=== PATIENT | female | born 1970 | race Two or more races ===

== ENCOUNTER 2018-05-17 11:56 | Emergency (ER) | payer SELFPAY ==
[~2018-05-17] VITALS: Ht 147.3 cm; Wt 59.0 kg
[2018-05-17 12:45] VITALS: BP 125/53
[2018-05-17] MEDS ORDERED: AMOX500C PO (13:38)
[2018-05-17] MEDS ORDERED: IBUP-1007 PO (13:38)
--- NOTE | 2018-05-17 13:39 | PHYS DOC ---
Past Medical History Past Medical History: No Pertinent History Past Surgical History: Alcohol Use: None Drug Use: None Adult General Chief Complaint Chief Complaint: OTHER COMPLAINTS HPI HPI Patient is a 48 year old female who presents with pain to the left ear and behind the left ear last 3 days. Patient denies recent illness or fever. Review of Systems Review of Systems Constitutional: Denies fever or chills [] Eyes: Denies change in visual acuity, redness, or eye pain [] HENT: Denies nasal congestion or sore throat. Left ear pain [] Respiratory: Denies cough or shortness of breath [] Cardiovascular: No additional information not addressed in HPI [] GI: Denies abdominal pain, nausea, vomiting, bloody stools or diarrhea [] : Denies dysuria or hematuria [] Musculoskeletal: Denies back pain or joint pain [] Integument: Denies rash or skin lesions [] Neurologic: Denies headache, focal weakness or sensory changes [] Endocrine: Denies polyuria or polydipsia [] All other systems were reviewed and found to be within normal limits, except as documented in this note. Current Medications Current Medications Current Medications Medications (Trade) Dose Ordered Sig/Kia Start Time Stop Time Status Last Admin Dose Admin Dexamethasone (Decadron) 8 mg 1X ONCE 05/17/18 13:45 05/17/18 13:46 DC 05/17/18 14:00 8 MG Ibuprofen (Motrin) 600 mg 1X ONCE 05/17/18 13:45 05/17/18 13:46 DC 05/17/18 14:00 600 MG Allergies Allergies Allergies Coded Allergies Type Severity Reaction Last Updated Verified No Known Drug Allergies 05/17/18 No Physical Exam Physical Exam Constitutional: Well developed, well nourished, no acute distress, non-toxic appearance. [] HENT: Normocephalic, atraumatic, bilateral external ears normal, oropharynx moist, no oral exudates, nose normal. Left ear tympanic is reddened and tender to examination. Behind left ear is tender to palpation. [] Eyes: PERRLA, EOMI, conjunctiva normal, no discharge. [] Neck: Normal range of motion, no tenderness, supple, no stridor. [] Cardiovascular:Heart rate regular rhythm, no murmur [] Lungs & Thorax: Bilateral breath sounds clear to auscultation [] Abdomen: Bowel sounds normal, soft, no tenderness, no masses, no pulsatile masses. [] Skin: Warm, dry, no erythema, no rash. [] Back: No tenderness, no CVA tenderness. [] Extremities: No tenderness, no cyanosis, no clubbing, ROM intact, no edema. [] Neurologic: Alert and oriented X 3, normal motor function, normal sensory function, no focal deficits noted. [] Psychologic: Affect normal, judgement normal, mood normal. [] Current Patient Data Vital Signs Vital Signs Date Time Temp Pulse Resp B/P (MAP) Pulse Ox O2 Delivery O2 Flow Rate FiO2 05/17/18 12:45 97.5 52 20 125/53 (77) 100 Room Air 97.5 EKG EKG [] Radiology/Procedures Radiology/Procedures [] Course & Med Decision Making Course & Med Decision Making Patient is a 48 year old female who presents with pain to the left ear and behind the left ear last 3 days. Patient denies recent illness or fever. Alert and oriented. Skin pink warm and dry. Mucous members are moist. Patient denies any cough, shortness of air, chest pain, abdominal pain, nausea, vomiting, fever , diarrhea. Left tympanic membrane is reddened and tender when examining. Vital signs within normal limits. Afebrile. Lungs are clear to auscultation in all lobes. Heart rate regular without murmur. Patient is treated with dexamethasone, pain medication and is sent home with an antibiotic. Patient to follow-up with her primary care doctor if not getting better. Dragon Disclaimer Dragon Disclaimer This electronic medical record was generated, in whole or in part, using a voice recognition dictation system. Departure Departure Impression: Primary Impression: Otitis media Disposition: 01 HOME, SELF-CARE Condition: STABLE Referrals: NO PCP (PCP) Patient Instructions: General Headache Without Cause, Otitis Media, Adult Additional Instructions: Follow up with primary care physician. Take medications as prescribed. Scripts Ibuprofen (IBUPROFEN) 600 Mg Tablet 600 MG PO PRN Q6HRS PRN for INFLAMMATION, #10 TAB Prov: PERCY JOHNSON [employer] 05/17/18 Amoxicillin (AMOXICILLIN) 500 Mg Capsule 1 CAP PO BID for 10 Days, #20 CAP Prov: PERCY JOHNSON [employer] 05/17/18 Problem Qualifiers Primary Impression: Otitis media Otitis media type: unspecified Laterality: left Qualified Codes: H66.92 - Otitis media, unspecified, left ear PERCY J[employer]NSON [employer] May 17, 2018 13:39
[2018-05-17] MEDS ORDERED: IBUPROFEN 600 MG TABLET. PO ONE (13:45)
[2018-05-17] MEDS ORDERED: DEXAMETHASONE 4 MG TABLET PO ONE (13:45)
== END 2018-05-17 14:03 | disposition home or self-care (01) ==
LOC: ER 11:56
DX: H66.92 Otitis media, unspecified, left ear (principal); Z98.890 Other specified postprocedural states
CPT/HCPCS: 99283; J8540

== ENCOUNTER 2019-09-28 09:37 | Emergency (ER) | payer SELFPAY ==
[~2019-09-28] VITALS: Ht 147.3 cm; Wt 63.0 kg
[~2019-09-28 09:37] MED LIST: AMOX500C PO; IBUP-1007 PO
[2019-09-28 09:50] VITALS: BP 122/59
--- NOTE | 2019-09-28 10:30 | RAD ---
CHEST AP ONLY History: Reason: soa, cough, positive for COVID-19 5 DAYS AGO / Spl. Instructions: / History: Comparison: None. Findings: No consolidation or pleural effusion. Normal heart size. No pneumothorax. Impression: 1. No acute cardiopulmonary process. Electronically signed by: Jesus Yu DO (09/28/2019 10:28 AM) [id number]
--- NOTE | 2019-09-28 10:33 | PHYS DOC ---
Past Medical History Past Medical History: No Pertinent History Past Surgical History: Smoking Status: Never Smoker Alcohol Use: None Drug Use: None General Adult EDM: Chief Complaint: SHORTNESS OF BREATH HPI: HPI: Patient is a 49 year old female who presented to ER today for evaluation of cough and trouble breathing. Patient says she was tested positive for COVID-19 5 days ago. Patient has been quarantined at home, she continues to have cough and having trouble breathing, she feels she could not catch her breath so she decided to come here for evaluation. Patient denies any headache, no abdominal pain, no nausea vomiting Review of Systems: Review of Systems: Constitutional: Positive for fever or chills. [] Eyes: Denies change in visual acuity. [] HENT: Denies nasal congestion or sore throat. [] Respiratory: Positive for cough or shortness of breath. [] Cardiovascular: Denies chest pain or edema. [] GI: Denies abdominal pain, nausea, vomiting, bloody stools or diarrhea. [] : Denies dysuria. [] Musculoskeletal: Denies back pain or joint pain. [] Integument: Denies rash. [] Neurologic: Denies headache, focal weakness or sensory changes. [] Endocrine: Denies polyuria or polydipsia. [] Lymphatic: Denies swollen glands. [] Psychiatric: Denies depression or anxiety. [] Heart Score: Risk Factors: Risk Factors: DM, Current or recent (<one month) smoker, HTN, HLP, family history of CAD, obesity. Risk Scores: Score 0 - 3: 2.5% MACE over next 6 weeks - Discharge Home Score 4 - 6: 20.3% MACE over next 6 weeks - Admit for Clinical Observation Score 7 - 10: 72.7% MACE over next 6 weeks - Early Invasive Strategies Allergies: Allergies: Allergies Coded Allergies Type Severity Reaction Last Updated Verified No Known Drug Allergies 05/17/18 No Physical Exam: PE: Constitutional: Well developed, well nourished, no acute distress, non-toxic appearance. [] HENT: Normocephalic, atraumatic, bilateral external ears normal, oropharynx moist, no oral exudates, nose normal. [] Eyes: PERRLA, EOMI, conjunctiva normal, no discharge. [] Neck: Normal range of motion, no tenderness, supple, no stridor. [] Cardiovascular:Heart rate regular rhythm, no murmur [] Lungs & Thorax: Bilateral breath sounds clear to auscultation [] Abdomen: Bowel sounds normal, soft, no tenderness, no masses, no pulsatile masses. [] Skin: Warm, dry, no erythema, no rash. [] Back: No tenderness, no CVA tenderness. [] Extremities: No tenderness, no cyanosis, no clubbing, ROM intact, no edema. [] Neurologic: Alert and oriented X 3, normal motor function, normal sensory function, no focal deficits noted. [] Psychologic: Affect normal, judgement normal, mood normal. [] Current Patient Data: Vital Signs: Vital Signs Date Time Temp Pulse Resp B/P (MAP) Pulse Ox O2 Delivery O2 Flow Rate FiO2 09/28/19 09:50 98.6 66 18 122/59 (80) 100 Room Air 98.6 EKG: EKG: [] Radiology/Procedures: Radiology/Procedures: [][facility] [address] [place], [place] [id number] IMAGING REPORT Signed PATIENT: ODALYS CANCINO TACCOUNT: [id number] : 1970 LOCATION: ER AGE: 49 SEX: F EXAM STATUS: REG ER ORD. PHYSICIAN: DAGMAR INGRAM DO REASON: soa, cough, positive for COVID-19 5 DAYS AGO PROCEDURE: CHEST AP ONLY CHEST AP ONLY History: Reason: soa, cough, positive for COVID-19 5 DAYS AGO / Spl. Instructions: / History: Comparison: None. Findings: No consolidation or pleural effusion. Normal heart size. No pneumothorax. Impression: 1. No acute cardiopulmonary process. Electronically signed by: Jesus Grajeda DO (09/28/2019 10:28 AM) [id number] DICTATED and SIGNED BY: JESUS GRAJEDA DO DATE: 09/28/19 1028 Course & Med Decision Making: Course & Med Decision Making Pertinent Labs and Imaging studies reviewed. (See chart for details) Patient is a 49-year-old female who is healthy, that COVID-19 infection foR 5 days now, present to ER for cough and trouble breathing, her vital signs was normal, her chest x-ray did not show any acute disease, patient did not show any acute distress in the ER, patient will be discharged home, continue quarantine at home until she is symptom-free. [place] Disclaimer: [place] Disclaimer: This electronic medical record was generated, in whole or in part, using a voice recognition dictation system. Departure Departure Impression: Primary Impression: COVID-19 virus infection Disposition: HOME, SELF-CARE Condition: STABLE Referrals: NO PCP (PCP) Please follow up with your PCP as needed Patient Instructions: Cough, Adult Additional Instructions: Definicin Se le realiz la prueba de deteccin del COVID-19 o se le diagnostic dicha enfermedad. Es rosy infeccin ocasionada por un nuevo tipo de coronavirus. En la mayora de los casos, el COVID-19 provoca sntomas similares a los del resfriado. En algunas personas, puede ocasionar sntomas ms graves, brunilda problemas respiratorios. No existe un tratamiento para el virus COVID-19. El cuerpo elimina la infeccin con el tiempo. El cuidado personal ayuda a aliviar el malestar. Pasos que debe seguir 1. Cuidados personales Descanse cuando sea necesario. Los hbitos saludables pueden ayudarlo a sentirse mejor. Algunas medidas para lograr cambios incluyen lo siguiente: - Elija alimentos saludables, brunilda frutas y verduras. Daija abundante cantidad de agua lindsey todo el da. - Duerma toshia por la noche. - Si fuma, intente no hacerlo. [employer] ayudar a mejorar la respiracin. - Evite el alcohol. 2. Mantenga sanos a los dems El virus puede contagiarse a otras personas. Cada vez que estornuda o tose, se liberan gotitas. Las gotitas pueden entrar en la boca, la nariz o los ojos de las personas que se encuentran cerca de usted y ocasionar la infeccin. Para reducir las probabilidades de contagiar el virus COVID-19 a otros, tenga en cuenta lo siguiente: - Qudese en casa el tiempo que el mdico se lo indique. Es posible que deba quedarse en casa hasta que la enfermedad desaparezca. Salga nicamente para recibir atencin mdica o en dago de urgencia. - Evite las reas pblicas, los eventos o el transporte pblico. No reanude las actividades laborales o escolares hasta que el mdico lo autorice. - Llame previamente si necesita asistir a un centro mdico. Avise que es posible que haya contrado COVID-19. [employer] ayudar a que le indiquen adonde debe dirigirse. [place] pueden pedirle que use rosy mscara facial cuando vaya al consultorio. Si llama a los servicios de asistencia mdica de urgencias, avseles que es posible que haya contrado COVID-19. Mientras est en casa: - Evite el contacto directo con otras personas. Mantngase a rosy distancia aproximada de 2 metros. Si es posible, pasen la mayor parte del tiempo en gil separadas. - Use rosy mscara facial si estar en contacto directo con otras personas, por ejemplo, si compartir rosy habitacin o un vehculo. - Pida a alguien que limpie las superficies comunes de la casa. Limpie picaportes, mesadas y lavamanos con limpiadores domsticos todos los gibbs. - Al toser o estornudar, cbrase con un pauelo de papel. Despus de usarlo, deschelo de inmediato. Si no tiene un pauelo de papel, tosa o estornude en el pliegue del codo. - Lvese las john con frecuencia. Lvese las john despus de estornudar o toser. Lvese con agua y jabn lindsey, al menos, 20 segundos. Si no dispone de agua y jabn, use un limpiador de john a base de alcohol. - No cocine para otros. Evite compartir objetos personales, brunilda tenedores, cucharas o cepillos de dientes. - Mientras est enfermo, evite el contacto directo con las mascotas. No hay indicios de si el virus se transmite a las mascotas. Esta es rosy medida de seguridad que debe tenerse en cuenta hasta que se sepa ms acerca de oliver virus. El aislamiento puede ser frustrante. La interaccin social puede ayudar. Mantngase en contacto con amigos y familiares por telfono u otros medios tecnolgicos. Puede interactuar con otras personas en el hogar, galen mantenga rosy distancia dinero de aproxi madamente 2 metros. Seguimiento Las pruebas para confirmar la presencia del COVID-19 pueden demorar algunos gibbs. Es posible que deba seguir los pasos mencionados anteriormente hasta que estn los resultados de las pruebas. Lo llamarn del consultorio mdico para saber si parra habido algn cambio en jaquez fox. Mona le avisarn cuando pueda volver a estar cerca de otras personas. Problemas a los que debe estar atento Comunquese con el mdico si no se recupera segn lo previsto o si tiene problemas brunilda los siguientes: - Dificultad para respirar - Dolor de pecho - Empeoramiento de los sntomas Si swapna que tiene rosy urgencia, llame a los servicios de asistencia mdica de urgencias de inmediato. As taken from [employer] Justicifation of Admission Dx: Justifications for Admission: Justification of Admission Dx: N/A DAGMAR INGRAM DO Sep 28, 2019 10:33
== END 2019-09-28 11:01 | disposition home or self-care (01) ==
LOC: ER 09:37
DX: U07.1 COVID-19 (principal); R05 Cough; R06.02 Shortness of breath
CPT/HCPCS: 71045; 99283